=== PATIENT | female | born 1965 | race Caucasian/White ===

== ENCOUNTER 2017-03-21 07:59 | Emergency (ER) | payer MEDICAID ==
[2017-03-21 09:31] VITALS: BP 103/77
== END 2017-03-21 09:31 | disposition home or self-care (01) ==
LOC: ED 07:59
DX: B34.9 Viral infection, unspecified (principal); E78.00 Pure hypercholesterolemia, unspecified
CPT/HCPCS: J1885; J7613; J7644; Q0092

== ENCOUNTER 2017-06-30 11:30 | Emergency (ER) | payer SELFPAY ==
[~2017-06-30] VITALS: Ht 165.1 cm; Wt 64.4 kg
[2017-06-30 11:54] VITALS: BP 140/96; Ht 165.1 cm; Wt 64.4 kg
== END 2017-06-30 16:22 | disposition left against medical advice (07) ==
LOC: ED 11:30
DX: Z53.21 Procedure and treatment not carried out due to patient leaving prior to being seen by health care provider (principal)